=== PATIENT | male | born 1985 | race Caucasian/White ===

== ENCOUNTER 2018-07-18 08:12 | Emergency (ER) | payer BC ==
[~2018-07-18] VITALS: Ht 180.3 cm; Wt 70.0 kg
[~2018-07-18 08:12] MED LIST: NO HOME MEDS
[2018-07-18 08:41] LABS: BASOPHILS # (AUTO) 0.1 X10'3 (0-0.2); BASOPHILS % (AUTO) 1.3 % (0-1); EOSINOPHILS # (AUTO) 0.2 X10'3 (0-0.9); EOSINOPHILS % (AUTO) 3.3 % (0-6); HEMATOCRIT 45.2 % (42.0-52.0); HEMOGLOBIN 15.2 g/dl (14.0-17.9); LYMPHOCYTES # (AUTO) 1.9 X10'3 (1.1-4.8); LYMPHOCYTES % (AUTO) 30.8 % (21-51); MEAN CORPUSCULAR HEMOGLOBIN 32.7 PG (27.0-31.0); MEAN CORPUSCULAR HGB CONC 33.8 % (33.0-36.5); MEAN CORPUSCULAR VOLUME 96.8 FL (78-98); MEAN PLATELET VOLUME 6.8 FL (7.4-10.4); MONOCYTES # (AUTO) 0.6 X10'3 (0-0.9); MONOCYTES % (AUTO) 10.6 % (2-12); NEUTROPHILS # (AUTO) 3.3 X10'3 (1.8-7.7); PLATELET COUNT 457 X10'3 (140-440); RED BLOOD COUNT 4.66 X10'6 (4.70-6.10); WHITE BLOOD COUNT 6.1 X10'3 (4.5-11.0)
[2018-07-18] MEDS ORDERED: QUET200T PO (08:45)
[2018-07-18] MEDS ORDERED: OLAN15TA3 PO (08:45)
[2018-07-18] MEDS ORDERED: QUET-1 PO (08:45)
[2018-07-18] MEDS ORDERED: OLANZapine 2.5MG tablet PO STA (08:49)
[2018-07-18] MEDS ORDERED: quetiapine 100mg tablet PO STA (08:49)
[2018-07-18 08:56] LABS: ALANINE AMINOTRANSFERASE 35 U/L (12-78); ALBUMIN 4.3 G/DL (3.4-5.0); ALBUMIN/GLOBULIN RATIO 1.2 (1.1-1.5); ALKALINE PHOSPHATASE 92 IU/L (46-116); ANION GAP 12 (8-16); ASPARTATE AMINO TRANSFERASE 30 U/L (10-37); BILIRUBIN,TOTAL 0.2 MG/DL (0.1-1.0); BLOOD UREA NITROGEN 12 MG/DL (7-18); BUN/CREATININE RATIO 15.8 (5.4-32.0); CALCIUM 8.7 MG/DL (8.5-10.1); CHLORIDE 106 MMOL/L (99-107); CREATININE 0.76 MG/DL (0.60-1.10); GLUCOSE 87 MG/DL (70-104); POTASSIUM 4.1 MMOL/L (3.5-5.1); SODIUM 143 MMOL/L (135-145); TOTAL CARBON DIOXIDE 24.8 MMOL/L (24-32); eGFR > 90 ML/MIN
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
[2018-07-18 09:05] LABS: ETHANOL 0.126 GM/DL (0.0-0.010)
[2018-07-18 09:39] LABS: URINE AMPHETAMINE SCREEN NEGATIVE (Neg); URINE BARBITUATE SCREEN NEGATIVE (Neg); URINE BENZODIAZEPINES SCREEN NEGATIVE (Neg); URINE CANNABINOID SCREEN POSITIVE (Neg); URINE COCAINE SCREEN NEGATIVE (Neg); URINE METHADONE SCREEN NEGATIVE (Neg); URINE OPIATE SCREEN NEGATIVE (Neg); URINE PHENCYCLIDINE SCREEN NEGATIVE (Neg)
--- NOTE | 2018-07-18 10:00 | NUR ---
PT SLEEPING IN ROOM
--- NOTE | 2018-07-18 11:00 | NUR ---
pt is requesting to call his father, phone provided
--- NOTE | 2018-07-18 12:00 | NUR ---
pt pacing room
--- NOTE | 2018-07-18 13:00 | NUR ---
pt keeps asking if he can leave and keeps wanting to call his dad. the last time the patient called his dad pt became very angry
[2018-07-18] MEDS ORDERED: QUEtiapine 25mg tablet PO STA (13:17)
[2018-07-18] MEDS ORDERED: divalproex sodium 250mg tablet PO ONE (13:20)
--- NOTE | 2018-07-18 14:00 | NUR ---
pt resting in bed
--- NOTE | 2018-07-18 15:00 | NUR ---
pt is wanting to go home
--- NOTE | 2018-07-18 15:27 | NUR ---
LATE ENTRYPT. USED THE PHONE EARLIER IN THE MORNING AND WAS YELLING. TELLING STAFF THAT HE WAS TALKING TO HIS PHYCIATRIST IN PAGE AND " I WANT YOU PEOPLE TO QUIT INTERUPTING ME.... " I WANT YOU PEOPLE TO LEAVE ME ALONE RIGHT NOW"
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
--- NOTE | 2018-07-18 16:48 | NUR ---
PT. STATES HE DOES NOT TAKE DEPAKOTE.... HE STATES THAT HE HAS NOT BEEN ON IT FOR A WHILE. PT. WROTE OUT HIS HOME MEDICATIONS SEROQUIL 100MG PO AM.... SEROQUIL 200MG PO AT HS, ZYPREXA 15MG PO AT HS... PT. STATES THAT HIS FAMILY DOES NOT KNOW WHAT HIS MEDICATION LIST IS... HE STATES THAT DR. PANCHAL PSYCIATRIST IS HIS PROVIDER FOR HIS MEDS AND THAT HE SEES THE [facility]....
--- NOTE | 2018-07-18 19:37 | NUR ---
patient eating dinner no observable s/s of acute stress at this time
[2018-07-18] MEDS: quetiapine 100mg tablet PO SCH (20:39)
[2018-07-18] MEDS: divalproex sodium 250mg tablet PO SCH (20:39)
--- NOTE | 2018-07-18 21:10 | NUR ---
patient in bed covers on lying on right side eyes closed rr even-unlabored no s/s of acute stress at this time
--- NOTE | 2018-07-18 23:10 | NUR ---
PATIENT IN ROOM IN BED LYING ON RIGHT SIDE COVERS ON EYES CLOSED RR EVEN UN-LABORED NO OBSERVABLE S/S OF ACUTE STRESS AT THIS TIME
--- NOTE | 2018-07-19 01:30 | NUR ---
PATIENT STARTING TO GET AGGITATED VERBALIZING NO ONE IS LISTENING TO HIM, DUE TO THE PATIENTS AGITATION DR. MADCONALD ORDERED 2MG ATIVAN IM TO BE ADMINISTERED GREGORY Song RN HELPING
[2018-07-19] MEDS ORDERED: LORazepam 1 MG tablet PO PRN (01:40)
[2018-07-19] MEDS ORDERED: LORazepam 0.5 MG tablet PO PRN (01:45)
[2018-07-19] MEDS ORDERED: LORazepam 2 mg/ml vial IM ONE (01:45)
--- NOTE | 2018-07-19 01:52 | NUR ---
MEDICATED WITH ATIVAN IM FOR AGGITATION.
--- NOTE | 2018-07-19 03:44 | NUR ---
PATIENT IN BED COVERS ON EYES CLOSED RR EVEN UN-LABORED NO OBSERVABLE S/S OF ACUTE STRESS AT THIS TIME
--- NOTE | 2018-07-19 05:38 | NUR ---
PATIENT IN BED EYES CLOSED LYING ON RIGHT SIDE RR EVEN UN LABORED NO OBSERVABLE S/S OF ACUTE STRESS AT THIS TIME
--- NOTE | 2018-07-19 06:24 | NUR ---
PT IS AWAKE AND ALERT, STANDING AT DOOR BRUSHING HIS TEETH. NO S/S OF DISTRESS NOTED
--- NOTE | 2018-07-19 06:39 | NUR ---
PT MOVED TO [facility]
--- NOTE | 2018-07-19 07:06 | NUR ---
Patient was up and walking around when first arrived 25 minutes ago. No laying on right side. No distress observed. Continue to monitor.
[2018-07-19] MEDS: divalproex sodium 250mg tablet PO SCH ×2 (08:00→21:15)
[2018-07-19] MEDS: quetiapine 100mg tablet PO SCH ×2 (08:23→21:15)
--- NOTE | 2018-07-19 09:05 | NUR ---
Patient sleeping. No distress observed. Continue to monitor.
--- NOTE | 2018-07-19 10:30 | NUR ---
Patient continues to sleep on right side. No distress observed. Continue to monitor.
--- NOTE | 2018-07-19 11:36 | NUR ---
Patient up to nurses station and asking for phone numbers. Patient appears to be some what appropriate with a little saul. Patient has fair insight. Continue to monitor.
--- NOTE | 2018-07-19 13:10 | NUR ---
Patient eating lunch. No distress observed. Continue to monitor.
--- NOTE | 2018-07-19 15:20 | NUR ---
Patient sitting in his bed, awake and keeping busy reading. No distress observed. Continue to monitor.
--- NOTE | 2018-07-19 17:35 | NUR ---
Patient in room sitting up and reading a magazine. No distress observed. Continue to monitor.
--- NOTE | 2018-07-19 19:55 | NUR ---
Patient resting in his room. No distress observed. Continue to monitor.
[2018-07-19] MEDS: OLANZapine 5mg rapidly disint. tablet PO SCH (21:13)
--- NOTE | 2018-07-19 21:35 | NUR ---
Patient at the nurses station and asking questions about his 5150. RN explained the procedure. Patient verbalized understanding. Continue to monitor.
--- NOTE | 2018-07-19 22:05 | NUR ---
Patient attempting to sleep on his right side. No distress observed. Continue to monitor.
--- NOTE | 2018-07-20 00:13 | NUR ---
UP MESSING AROUND WITH BED CONTROLS. INSTRUCTED TO LEAVE THE BED IN THE LOWEST POSITION, BUT CAN ADJUST OTHER CONTROLS DESIRED.
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
[2018-07-20] MEDS: quetiapine 100mg tablet PO SCH ×2 (07:21→19:48)
[2018-07-20] MEDS: divalproex sodium 250mg tablet PO SCH ×3 (07:21→20:00)
--- NOTE | 2018-07-20 07:30 | NUR ---
Provided with AM medications. Patient refused to take morning Depakote. "I never take Depakote in the morning." Accepted Seraquel 100 mg. without event.
--- NOTE | 2018-07-20 08:30 | NUR ---
Served breakfast. Ate 100% of his meal. Remained hungry after eating. Provided with additional food and fluids.
--- NOTE | 2018-07-20 09:30 | NUR ---
Speaking with his father on the phone in an agitated manner. Yelling at his father. Stating "I'm tired of you telling me what to do."
--- NOTE | 2018-07-20 13:00 | NUR ---
Note [email or web address] in ED - 07/20/18 at 1755 by DIYA Kept himself awake for the remainder of the day. Insisted he would not take a nap because "I'm 32 years old and 32 year old men do not take naps." Exercised by his bed. Colored. Stared at staff. Asked for hot tea or coffee once an hour. Presents as perplexed as to why he is here. Believes "I'm here for no reason. I should be at home." Lacks insight and judgement at this time.
[2018-07-20 17:36] VITALS: BP 124/89
--- NOTE | 2018-07-20 17:49 | NUR ---
Call received from nurse Diego at [facility] for a nurse to nurse report. Report given. Brandie states patient will most likely be admitted to their facility.
--- NOTE | 2018-07-20 17:54 | NUR ---
Kept himself awake for the remainder of the day. Insisted he would not take a nap because "I'm 32 years old and 32 year old men do not take naps." Exercised by his bed. Colored. Stared at staff. Asked for hot tea or coffee once an hour. Presents as perplexed as to why he is here. Believes "I'm here for no reason. I should be at home." Lacks insight and judgement at this time.
--- NOTE | 2018-07-20 18:56 | NUR ---
The patient is resting on his bed and drinking hot tea after eating a 100% of his dinner. He was polite and appropriate when approached for the evening assessment. He denies suicidal thoughts or psychosis and added that he felt his thinking was straight. When asked why he was on a 5150 he replied that he thought that his neighbors had called the police on him because he was listening to music late at night and that he had been starting up his weedeater before 7am. He stated he was having anxiety because he was here and not able to go to work. Spoke with [facility] regarding placement and they stated that they may have a bed at [facility].
[2018-07-20] MEDS: OLANZapine 5mg rapidly disint. tablet PO SCH (19:48)
[2018-07-20] MEDS ORDERED: divalproex sodium 250mg tablet PO ONE (20:00)
--- NOTE | 2018-07-20 20:40 | NUR ---
The patient has been accepted at [facility]. [facility] is arranging transport
== END 2018-07-20 21:44 | disposition home or self-care (01) ==
LOC: ER 08:12
DX: F23 Brief psychotic disorder (principal); R45.1 Restlessness and agitation; F31.9 Bipolar disorder, unspecified; F17.200 Nicotine dependence, unspecified, uncomplicated
CPT/HCPCS: 36415; 80053; 80305; 80320; 84443; 85025; 96372; 99285; J2060